=== PATIENT | male | born 1960 | race Caucasian/White ===

== ENCOUNTER 2017-10-06 16:21 | Observation (INO) | payer MEDICARE ==
[~2017-10-06] VITALS: Ht 190.5 cm; Wt 119.1 kg
--- NOTE | ~2017-10-06 | HEMODYNAMI ---
PATIENT:LEONARDO POTTER MEDICAL RECORD: [id number] : 60 LOCATION:[facility] D.2118 ADMISSION DATE: 10/06/17 Generatedon:10/07/201715:26 Patient name: LEONARDO POTTER Patient #: [id number] : 1960 Date of study: 10/07/2017 Page: Of Hemodynamic Procedure Report Patient Data Patient Demographics Procedure consent was obtained First Name: LEONARDO Gender: Male Last Name: TARIQ : 1960 Middle Initial: A Age: 57 year(s) Patient #: [id number] Race: SSN: [id number] Additional ID: [id number] Contact details Address: [address] [address] State: [place] City: [place] Zip code: [address] Past Medical History History of disease Date Diagnosis Comments CAD Allergies: No known allergies Admission Admission Data Admission Date: 10/06/2017 Admission Time: 19:11 Arrival Date: 10/07/2017 Arrival Time: 0:00 Admit Source: Other Insurance Payor: Medicare Room #: D.2118 Weight (lbs.): 260 Weight (kg.): 117.93 Procedure Procedure Types Cath Procedure Diagnostic Procedure [facility] w/Coronaries PCI Procedure PTCA PTCA Initial Miscellaneous Procedures Moderate Sedation up to 30 minutes Procedure Description Procedure Date Procedure Date: 10/07/2017 Procedure Start Time: 14:59 Procedure End Time: 15:22 Procedure Staff Name Function Quinton Gamez MD Performing Physician Kulwant Zafar RT Monitor Trudy Crisostomo RT Scrub Hair Ann RN Nurse Indication Angina Procedure Data Cath Procedure Fluoroscopy Diagnostic fluoroscopy Total fluoroscopy Time: 8.1 time: 8.1 min min Diagnostic fluoroscopy Total fluoroscopy dose: 630 dose: 630 mGy mGy Contrast Material Contrast Material Type Amount (ml) Isovue 300 108 Entry Location Entry Primary Successful Side Size Upsize Upsize Entry Closure Hussein ccessful Closure Location (Fr) 1 (Fr) 2 (Fr) Remarks Device Remarks Radial Right 6 Fr Mechanical artery Short Compression Estimated blood loss: 5 ml Diagnostic catheters Device Type Used For End Catheter Placement Terumo 5Fr William 110cm Multi-vessel catheter Angiography Procedure Complications No complications Procedure Medications Medication Administration Route Dosage Oxygen NC 2 l/min Zofran I.V. 4 mg Lidocaine 2% added to field 20 Heparin Flush Bag added to field 2 bags (1000units/500ml NS) 0.9% NaCl I.V. 100 ml/hr Versed I.V. 1 mg Fentanyl I.V. 50 mcg Radial Cocktail I.A. 1 syringe (Verapomil 2mg/Nitro 400mcg/Heparin 1500units) Versed I.V. 1 mg Fentanyl I.V. 50 mcg Heparin Bolus I.V. 99137 units Fentanyl I.V. 25 mcg Plavix P.O. 600 mg Hemodynamics Rest Heart Rate: 65 (bpm) Pressure Samples Time Site Value (mmHg) Purpose Heart Use Rate(bpm) 15:02 LV 156/-21,15 Snapshot 62 Gradients Valve Time Site Site Mean SEP/DFP Peak To Heart Use 1 2 (mmHg) (sec/min) Peak Rate (mmHg) (bpm) Aortic 15:03 LV AO 62 Snapshots Pre Cath Intra NCS Post Cath Vital Signs Time Heart Resp SPO2 etCO2 NIBP (mmHg) Rhythm Pain Sedation Rate (ipm) (%) (mmHg) Status Level (bpm) 14:48:52 64 19 94 0 161/85(139) NSR 0 (11) 10(A) , No pain 14:53:12 61 15 93 31.5 156/84(132) NSR 0 (11) 10(A) , No pain 14:57:39 60 15 94 19.5 157/84(129) NSR 0 (11) 9(A) , No pain 15:02:07 62 15 94 22.5 140/68(103) NSR 0 (11) 9(A) , No pain 15:06:29 63 16 93 30 131/76(113) NSR 0 (11) 9(A) , No pain 15:10:53 63 15 93 39 127/64(105) NSR 0 (11) 9(A) , No pain 15:15:13 61 16 94 40.5 129/70(101) NSR 0 (11) 9(A) , No pain 15:20:41 64 16 94 42 141/77(116) NSR 0 (11) 10(A) , No pain 15:24:55 62 15 94 22.5 135/71(114) NSR 0 (11) 10(A) , No pain Medications Time Medication Route Dose Verified Delivered Reason Note s Effectiveness by by 14:46:05 Oxygen NC 2 l/min Quinton Buffie used for Huseyin Ann RN procedure 14:46:13 Zofran I.V. 4 mg Quinton Buffie Per physician Huseyin Ann RN 14:54:03 Lidocaine 2% added 20ml Quinton Quinton for local to vial Huseyin Gamez MD anesthetic field 14:54:09 Heparin Flush added 2 bags Quinton Quinton used for Bag to Huseyin Gamez MD procedure (1000units/500ml field NS) 14:54:18 0.9% NaCl I.V. 100 Quinton Buffie Per physician ml/hr Huseyin Ann RN 14:54:29 Versed I.V. 1 mg Quinton Buffie for sedation Huseyin Ann RN 14:54:35 Fentanyl I.V. 50 mcg Quinton Buffie for sedation Huseyin Ann RN 15:01:16 Radial Cocktail I.A. 1 Quinton Quinton for (Verapomil syringe Huseyin Gamez MD vasodilation 2mg/Nitro 400mcg/Heparin 1500units) 15:01:22 Versed I.V. 1 mg Quinton Buffie for sedation Huseyin Ann RN 15:01:26 Fentanyl I.V. 50 mcg Quinton Buffie for sedation Huseyin Ann RN 15:10:05 Heparin Bolus I.V. 12,000 Quinton Buffie for veri fied units Huseyin Ann RN anticoagulation with dr gamez. 15:13:32 Fentanyl I.V. 25 mcg Quinton Buffie for sedation Huseyin Ann RN 15:24:00 Plavix P.O. 600 mg Quinton Buffie for Huseyin Ann RN antiplatelet therapy Procedure Log Time Note 14:25:36 Diagnostic Cath Status : Elective 14:26:02 Indication : Angina 14:26:06 Kulwant SIMONS(R) (CV) sent for patient. Start room use. 14:26:07 Time tracking: Regular hours 14:26:11 Plan of Care:Hemodynamics will remain stable., Cardiac rhythm will remain stable., Comfort level will be maintained., Respiratory function will remain adequate., Patient/ family verbilizes understanding of procedure., Procedure tolerated without complication., Recovers from procedure without complications.. 14:46:05 Oxygen 2 l/min NC was administered by Hair Ann RN; used for procedure; 14:46:13 Zofran 4 mg I.V. was administered by Hair Ann RN; Per physician; 14:47:20 Patient received from Med II to [facility] 3 Alert and oriented. Tansferred to table in Supine position. 14:47:22 Warm blankets applied, and donovan hugger turned on for patient comfort. 14:47:23 Correct patient and procedure confirmed by team. 14:47:25 Signed procedure consent form obtained from patient. 14:47:26 ECG and BP/O2 sat monitors applied to patient. 14:47:26 Vital chart was started 14:47:27 Baseline sample Acquired. 14:47:31 Rhythm: sinus rhythm 14:47:33 Full Disclosure recording started 14:47:37 H&P Date Dictated: 10/07/2017 New H&P dictated by physician.. 14:47:38 Pre-procedure instructions explained to patient. 14:47:38 Pre-op teaching completed and patient verbalized understanding. 14:47:40 Family in waiting room. 14:47:42 Patient NPO since Midnight. 14:47:47 Is the patient allergic to Iodine/contrast media? No. 14:47:48 Was the patient premedicated? No 14:47:50 Is patient on blood thinner?No 14:47:52 Patient diabetic? No. 14:47:54 Previous problem with sedation/anesthesia? Yes nausea and vomiting 14:47:56 Snore? Yes 14:47:58 Sleep apnea? Yes 14:47:59 Deviated septum? No 14:48:00 Opens mouth fully? Yes 14:48:01 Sticks out tongue? Yes 14:49:04 Airway obstruction? No ? 14:49:17 Dentures? No ? 14:49:28 Pre procedure: right dorsailis pedis pulse 2+ Normal; easily identifiable; not easily obliterated 14:49:30 Pre procedure: left dorsailis pedis pulse 2+ Normal; easily identifiable; not easily obliterated 14:49:33 Patient pain scale 0/10 ?. 14:49:38 IV patent on arrival in right hand with 0.9% NaCl at [facility]. 14:50:42 Lab results completed and on chart. 14:50:47 Right Radial & Right Groin area was prepped with chlora-prep and draped in sterile fashion 14:50:48 Alarms reviewed by RLauren N. 14:50:49 Sharps counted by scrub and verified by R.N. 14:50:50 Physician arrived 14:50:50 --------ALL STOP TIME OUT------ 14:50:51 Final Timeout: patient, procedure, and site verified with staff and physician. All members of the team are in agreement. 14:50:53 Right Radial & Right Groin site verified by team. 14:50:56 Physical assessment completed. ASA score P 2 - A patient with mild systemic disease as per Quinton Gamez MD. 14:51:00 Sedation plan: IV Moderate Sedation Medication:Versed, Fentanyl 14:51:05 Use device set Radial Dx 14:51:06 Acist Syringe opened to sterile field. 14:51:06 Medline Cath Pack opened to sterile field. 14:51:07 Bag Decanter opened to sterile field. 14:51:07 Terumo 6Fr Slender Glidesheath opened to sterile field. 14:51:07 St Bud 260cm J .035 wire opened to sterile field. 14:51:08 Acist Hand Control opened to sterile field. 14:51:08 Acist Manifold opened to sterile field. 14:51:08 Tegaderm 4 x 4 opened to sterile field. 14:51:09 MBrace Wrist Support opened to sterile field. 14:51:33 Cook 21G 4cm Radial Needle opened to sterile field. 14:52:27 Admit Source: Other 14:52:31 Patient Weight : 260 lbs 14:52:32 Arrival Date: 10/07/2017 12:00:00 AM 14:52:38 Insurance Payor : Medicare 14:54:03 Lidocaine 2% 20ml vial added to field was administered by Quinton Gamez MD; for local anesthetic; 14:54:09 Heparin Flush Bag (1000units/500ml NS) 2 bags added to field was administered by Quinton Gamez MD; used for procedure; 14:54:18 0.9% NaCl 100 ml/hr I.V. was administered by Hair Ann RN; Per physician; 14:54:29 Versed 1 mg I.V. was administered by Hair Ann RN; for sedation; 14:54:35 Fentanyl 50 mcg I.V. was administered by Hair Ann RN; for sedation; 14:56:52 Zero performed for pressure channel P1 14:57:19 Zero performed for pressure channel P1 14:58:56 Procedure started. 14:59:01 Local anesthetic to right radial artery with Lidocaine 2% by Quinton Gamez MD.INITIAL ACCESS ONLY 15:01:16 Radial Cocktail (Verapomil 2mg/Nitro 400mcg/Heparin 1500units) 1 syringe I.A. was administered by Quinton Gamez MD; for vasodilation; 15:01:22 Versed 1 mg I.V. was administered by Hair Ann RN; for sedation; 15:01:24 A 6 Fr Short sheath was inserted into the Right Radial artery 15:01:26 Fentanyl 50 mcg I.V. was administered by Hair Ann RN; for sedation; 15:01:30 A Interactive Fate 5Fr William 110cm catheter was advanced over the wire and used for Multi-vessel Angiography. 15:02:49 LV hemodynamics recorded. 15:02:54 LV gram done using REY 15:02:59 Injector settings: Ml/sec: 5, Volume: 15, 15:03:09 EF : 50 % 15:03:48 RCA angiography performed. 15:03:51 Injector settings: Ml/sec: 3, Volume: 6, 15:04:32 LCA angiography performed. 15:04:53 Injector settings: Ml/sec: 3, Volume: 6, 15:05:42 Catheter removed. 15:05:43 Proceeding to intervention. 15:06:04 Logan Sci Luge Straight 300cm 0.014 guide wire opened to sterile field. 15:06:05 Merit BasixCompak Inflation Kit opened to sterile field. 15:06:06 Cordis 6FR XBLAD 3.5 guide catheter opened to sterile field. 15:06:19 6 Fr xblad 3.5 guide catheter was inserted over the wire 15:07:42 luge wire advanced. 15:07:59 High Pressure Extension Tubing (Huseyin) opened to sterile field. 15:10:05 Heparin Bolus 12,000 units I.V. was administered by Hair Ann RN; for anticoagulation; verified with dr gamez. 15:10:21 Wire advanced across lesion. 15:13:32 Fentanyl 25 mcg I.V. was administered by Hair Ann RN; for sedation; 15:14:14 Inflation number: 1 A Logan Sci [place] 2.0 X 20 balloon was prepped and advanced across the Mid LAD, then inflated to 10 MONY for 0:10 (min:sec). 15:14:54 Inflation number: 2 The Logan Sci [place] 2.0 X 20 balloon was reinflated across the Mid LAD, to 12 MONY for 0:10 (min:sec). 15:15:21 Inflation number: 3 The Logan Sci [place] 2.0 X 20 balloon was reinflated across the Mid LAD, to 14 MONY for 0:10 (min:sec). 15:16:22 Inflation number: 4 The Logan Sci [place] 2.0 X 20 balloon was reinflated across the Mid LAD, to 12 MONY for 0:10 (min:sec). 15:17:55 Inflation number: 5 The Logan Sci [place] 2.0 X 20 balloon was reinflated across the Mid LAD, to 14 MONY for 0:10 (min:sec). 15:19:23 Balloon removed over the wire. 15:19:23 Wire removed. 15:19:24 Guide catheter removed. 15:20:03 Terumo TR Band Large opened to sterile field. 15:20:26 Sheath removed intact; hemostasis achieved with Mechanical Compression to the Right Radial artery. 15:20:28 Procedure ended.(Physican Out) 15:20:43 Fluoroscopy time 08.10 minutes. 15:20:47 Flurop Dose total: 630 15:20:47 Fluoroscopy dose: 630 mGy 15:20:52 Contrast amount:Isovue 300 108ml. 15:20:53 Sharps counted by scrub and verified by R.N. 15:20:55 Insertion/operative site no bleeding no hematoma. 15:20:58 TR band inflated with 10cc of air. 15:21:03 Post right radial artery:stable 15:21:04 Post Procedure Pulses reassessed and unchanged 15:21:07 Post procedure rhythm: unchanged. 15:21:10 Estimated blood loss: 5 ml 15:21:11 Post procedure instruction explained to patient.Patient verbalizes understanding. 15:21:12 Patient needs reinforcement of post procedure teaching. 15:21:28 Procedure type changed to Cath procedure, Diagnostic procedure, LHC, LHC w/Coronaries, PCI procedure, PTCA, PTCA Initial, Miscellaneous Procedures, Moderate Sedation up to 30 minutes 15:21:30 Procedure and supply charges have been captured, reviewed, submitted and are correct. 15:21:34 Procedure Complication : No complications 15:22:06 Vital chart was stopped 15:22:08 See physician's report for complete and final results. 15:22:10 Report given to [facility]. 15:22:13 Patient transfered to [facility] with Stretcher. 15:22:14 Procedure ended. 15:22:14 Full Disclosure recording stopped 15:22:23 ACC-PCI Only Patient was given prescriptions, or instructed by Quinton Gamez MD to start/continue the following medications upon discharge: Plavix 15:22:36 End room use (Document Last) 15:24:00 Plavix 600 mg P.O. was administered by Hair Ann RN; for antiplatelet therapy; Intervention Summary Intervention Notes Time ActionType Lesion and Equipment Action# Pressure Duration Attributes Used 15:14:14 Inflate Mid LAD Logan 1 10 00:10 balloon Sci [place] 2.0 X 20 balloon 15:14:54 Reinflate Mid LAD Logan 2 12 00:10 balloon Sci [place] 2.0 X 20 balloon 15:15:21 Reinflate Mid LAD Logan 3 14 00:10 balloon Sci [place] 2.0 X 20 balloon 15:16:22 Reinflate Mid LAD Logan 4 12 00:10 balloon Sci [place] 2.0 X 20 balloon 15:17:55 Reinflate Mid LAD Logan 5 14 00:10 balloon Sci [place] 2.0 X 20 balloon Device Usage Item Name Manufacture Quantity Catalog Number Hospital Part Current Mini mal Lot# / Charge Number Stock Stock Serial# Code Acist Acist 1 72722 [id number] 372465 [id number] 20 Syringe Medical Systems Inc Medline Cardinal 1 [id number] 136686 90468 531801 5 Cath Pack Health Bag Microtek 1 2001S [id number] 24630 589996 5 Rockmelt [employer] Inc. Terumo 6Fr Terumo 1 [id number] 182977 181014 501099 [address] St Bud 1 728042 428136 218964 799840 30 260cm J .035 wire Acist Hand Acist 1 45499 269420 893970 392929 5 Control Medical Systems Inc Acist Acist 1 34514 537578 731778 020466 5 Manifold Medical Systems Inc Tegaderm 4 3M 1 1626W 957415 338774 516523 5 x 4 MBrace Advanced 1 140-0250-00 353158 81004 051914 5 Wrist Vascular Support Dynamics Cook 21G Cook Medical 1 [id number] 893992 736968 057479 5 4cm Radial Needle Terumo 5Fr Terumo 1 70-3487 758024 438228 581056 5 William 110cm catheter Logan Sci Logan 1 [id number] 088271 320189 259892 5 [employer] Scientific Straight 300cm 0.014 guide wire Merit Merit 1 [id number] 011104 170090 375412 15 Viigo Medical Inflation Kit Cordis 6FR Cardinal 1 [id number] 179247 303523 328930 10 XBLAD 3.5 Health guide catheter High Merit 1 [id number] 256109 44649 394999 10 Pressure Medical Extension Tubing (Gamez) Logan Sci Logan 1 [id number] 865739 288359 879081 1 [id number] StartMe 2.0 X 20 balloon Terumo TR Terumo 1 [id number] 351995 872185 091775 40 Band Large Signature Audit [place] Stage Time Signature Unsigned Intra-Procedure 10/07/2017 Trudy Crisostomo 3:26:07 PM RT(R) Signatures Monitor : Kulwant Zafar RT Signature : Date : Time : [facility] [address] [place] [address]
[~2017-10-06 16:21] MED LIST: BAYER CHEWABLE81 MG PO; CELEXA40 MG PO; GLIPIZIDE10 MG PO; HYDROCHLOROTH12.5 M1 PO; HYDROCODON-ACE1 EAC7 PO; ISOSORBIDE MONO20 MG PO; LANTUS SOL100 UNIT/1 SC; METOPROLOL TART50 MG PO; NOVOLOG100 U/M1 SC; PLAVIX75 MG PO; TRICOR48 MG PO; ZOCOR10 MG PO; ZYLOPRIM300 MG PO
[2017-10-06 16:45] LABS: BASOPHILS 0.5 % (0-2); EOSINOPHILS 2.8 % (0-7); HEMATOCRIT 34.7 % (42.0-54.0); HEMOGLOBIN 11.6 g/dL (13.5-17.5); IMMATURE GRANULOCYTES 6.9 % (0-5); LYMPHOCYTES 11.8 % (15-50); MCH 27.6 pg (26.0-34.0); MCHC 33.4 g/dL (31.0-37.0); MCV 82.4 fL (80.0-100.0); MEAN PLATELET VOLUME 9.8 fL (7.4-10.4); MONOCYTES 7.4 % (2-11); NEUTROPHILS 70.6 % (40-80); RBC 4.21 10x6/uL (4.20-6.10); RDW 16.4 % (11.5-14.5); WBC 18.9 10x3/uL (4.8-10.8)
[2017-10-06 16:58] LABS: PLATELET COUNT 135 10x3/uL (130-400)
[2017-10-06 17:23] LABS: ALBUMIN 3.3 g/dL (3.4-5.0); ALKALINE PHOSPHATASE 117 U/L (46-116); ALT (SGPT) 29 U/L (10-68); BILIRUBIN - TOTAL 1.06 mg/dL (0.2-1.3); CALCIUM 8.4 mg/dL (8.5-10.1); CARBON DIOXIDE 27.8 mmol/L (21.0-32.0); CHLORIDE - SERUM 104 mmol/L (98-107); CREATININE - SERUM 1.4 mg/dL (0.6-1.3); POTASSIUM - SERUM 3.6 mmol/L (3.5-5.1); PROTEIN - SERUM 6.9 g/dL (6.4-8.2); SODIUM 141 mmol/L (136-145); UREA NITROGEN 19 mg/dL (7-18); eGFR NON AFRICAN AMERICAN 55 mL/min (90-120)
[2017-10-06 17:35] LABS: CHOL - HDL RATIO 3.8 ratio (2.3-4.9); CHOLESTEROL, TOTAL 110 mg/dL (0-200); CKMB 2.2 U/L (0.0-3.6); CREATINE KINASE 136 UL (21-232); HDL CHOLESTEROL 29 mg/dL (32-96); LDL CHOLESTEROL 38 mg/dL (0-100); LDL-HDL RATIO 1.3 ratio (1.5-3.5); TRIGLYCERIDE 215 mg/dL (30-200)
[2017-10-06 17:42] LABS: CALC OSMOLALITY 291 mosm/kg (275-300); GLUCOSE 253 mg/dL (74-106); TROPONIN-I < 0.017 ng/mL (0.000-0.060)
[2017-10-06 19:39] LABS: APPEARANCE CLEAR (CLEAR); BILIRUBIN NEGATIVE (NEGATIVE); COLOR YELLOW (YELLOW); GLUCOSE NEGATIVE (NEGATIVE); KETONE NEGATIVE (NEGATIVE); NITRITE NEGATIVE (NEGATIVE); PROTEIN 1+ mg/dL (NEGATIVE); SPECIFIC GRAVITY 1.015 (1.005-1.020); UROBILINOGEN NORMAL (NORMAL)
[2017-10-06 20:20] LABS: CREATINE KINASE 126 UL (21-232)
[2017-10-06 20:38] LABS: TROPONIN-I < 0.017 ng/mL (0.000-0.060)
--- NOTE | 2017-10-06 22:32 | NUR ---
PATIENT ADMITTED FROM THE ER AT 1930. C/O CHEST PAIN. TREATED ORDERED. PATIENT IS ALERT AND ORIENTED. IV IN RIGHT HAND IS PATENT WITH NS RUNNING AT 150ML/HR. DENIES ANY NEEDS AT THIS TIME.BED IN LOW POSITION, CALL LIGHT IN REACH.
[2017-10-06] MEDS ORDERED: TRAZODONE HCL50 MG PO (22:47)
[2017-10-06] MEDS ORDERED: LISINOPRIL10 MG PO (22:49)
[2017-10-06] MEDS ORDERED: PHENERGAN25 M1 PO (22:51)
[2017-10-06 22:54] VITALS: BP 196/82
[2017-10-06] MEDS ORDERED: LIPITOR80 MG PO (22:55)
[2017-10-06] MEDS ORDERED: PAXIL40 MG PO (22:56)
[2017-10-06] MEDS ORDERED: REGLAN5 MG PO (22:57)
[2017-10-06] MEDS ORDERED: NEURONTIN 300300 MG PO (22:58)
[2017-10-06 23:23] VITALS: BP 154/71; Ht 190.5 cm; Wt 119.1 kg
--- NOTE | 2017-10-07 00:01 | NUR ---
CLOTH INSPECTOR AT BED SIDE TO OBTAIN VITALS, WILL CONT TO MONITOR.
[2017-10-07 01:53] LABS: CREATINE KINASE 120 UL (21-232); TROPONIN-I 0.019 ng/mL (0.000-0.060)
--- NOTE | 2017-10-07 03:17 | NUR ---
PATIENT REPORTS ITCHING ON FACE AND NECK. CALLED IN ORDER FOR BENADRYL. APPLYED COLD WASHCLOTH COMFORT MEASURE. 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 HE HOPES THEY DONT HAVE TO PUT IN ANY MORE STINTS. RIGHT HAND IV WITH NS AT 150ML/HR. OXYGEN AT 2 LITERS. BED IN LOW POSITION, CALL LIGHT IN REACH.
[2017-10-07 04:27] VITALS: BP 161/71
--- NOTE | 2017-10-07 06:13 | NUR ---
PT IN BED RESTING QUIETLY. BREATHING EVEN AND UNLABORED. BED RAILS UP X2. BED IN LOW POSITION, CALL LIGHT WITHIN REACH.
[2017-10-07 07:52] VITALS: BP 151/68
[2017-10-07 07:58] LABS: BASOPHILS 0.7 % (0-2); EOSINOPHILS 2.8 % (0-7); HEMATOCRIT 34.3 % (42.0-54.0); HEMOGLOBIN 11.3 g/dL (13.5-17.5); IMMATURE GRANULOCYTES 8.1 % (0-5); LYMPHOCYTES 14.4 % (15-50); MCH 27.5 pg (26.0-34.0); MCHC 32.9 g/dL (31.0-37.0); MCV 83.5 fL (80.0-100.0); MEAN PLATELET VOLUME 9.7 fL (7.4-10.4); MONOCYTES 9.2 % (2-11); NEUTROPHILS 64.8 % (40-80); PLATELET COUNT 134 10x3/uL (130-400); RBC 4.11 10x6/uL (4.20-6.10); RDW 16.5 % (11.5-14.5); WBC 18.1 10x3/uL (4.8-10.8)
[2017-10-07 08:47] LABS: CALC OSMOLALITY 287 mosm/kg (275-300); CALCIUM 8.3 mg/dL (8.5-10.1); CHLORIDE - SERUM 106 mmol/L (98-107); CKMB 1.8 U/L (0.0-3.6); CREATINE KINASE 101 UL (21-232); CREATININE - SERUM 1.3 mg/dL (0.6-1.3); GLUCOSE 108 mg/dL (74-106); POTASSIUM - SERUM 3.5 mmol/L (3.5-5.1); SODIUM 143 mmol/L (136-145); TROPONIN-I < 0.017 ng/mL (0.000-0.060); UREA NITROGEN 17 mg/dL (7-18); eGFR NON AFRICAN AMERICAN 60 mL/min (90-120)
--- NOTE | 2017-10-07 09:39 | NUR ---
[facility] CONSENTS SIGNED FOR [facility]. CALL LIGHT IN REACH. WILL CONT. PLAN OF CARE.
[2017-10-07 11:59] VITALS: BP 168/74
[2017-10-07 14:59] VITALS: BP 166/71
--- NOTE | 2017-10-07 15:00 | NUR ---
PRE-OPS GIVEN. TO ENGINE SPECIALIST BY BED.
--- NOTE | 2017-10-07 15:46 | NUR ---
BACK FROM GERIATRIC CARE MANAGER. VS WNL. RIGHT WRIST STABLE WITH TR BAND INTACT. WILL MONITOR.
--- NOTE | 2017-10-07 19:41 | NUR ---
REMOVED 4 CC FROM TR BAND, NO, BLEEDING NOTED, WILL CONT TO MONITOR.
== END 2017-10-07 20:00 | disposition home or self-care (01) ==
LOC: D.ER 16:21 → D.M2 19:11 → OBSVTIME 19:11 → D.M2 10-07 20:00
PROVIDERS: Family Medicine; Internal Medicine Cardiovascular Disease; ADMIT Emergency Medicine
DX: I25.110 Atherosclerotic heart disease of native coronary artery with unstable angina pectoris (principal); I10 Essential (primary) hypertension; Z95.5 Presence of coronary angioplasty implant and graft; Z87.891 Personal history of nicotine dependence; T82.855A Stenosis of coronary artery stent, initial encounter; Y83.8 Other surgical procedures as the cause of abnormal reaction of the patient, or of later complication, without mention of misadventure at the time of the procedure; E11.40 Type 2 diabetes mellitus with diabetic neuropathy, unspecified; E11.65 Type 2 diabetes mellitus with hyperglycemia; E78.5 Hyperlipidemia, unspecified; F32.9 Major depressive disorder, single episode, unspecified